=== PATIENT | female | born 1970 | race Caucasian/White ===

== ENCOUNTER 2018-07-20 11:05 | Day surgery (SDC) | payer BC ==
[~2018-07-20] VITALS: Ht 177.8 cm; Wt 89.8 kg
[2018-07-20] MEDS ORDERED: MIDAZOLAM 1 MG/ML, 2ML ONE (11:33)
[2018-07-20] MEDS ORDERED: FENTANYL PF 100 MCG/2ML ONE ×2 (11:33→13:43)
[2018-07-20] MEDS ORDERED: LACTATED RINGERS 1,000 ML IV SCH (11:34)
[2018-07-20] MEDS ORDERED: IBUP-1222 PO (11:42)
[2018-07-20] MEDS ORDERED: CYCL-259 PO (11:42)
[2018-07-20] MEDS ORDERED: OXYC-302 PO (11:42)
[2018-07-20] MEDS ORDERED: ACYC-114 PO (11:42)
[2018-07-20] MEDS ORDERED: SIME125C67 PO (11:42)
[2018-07-20 11:57] VITALS: BP 121/83
[2018-07-20 12:19] LABS: HCG UR SG 1.014 (1.003-1.030)
[2018-07-20] MEDS ORDERED: KETOROLAC 30 MG/1 ML ONE (12:55)
[2018-07-20] MEDS ORDERED: LIDOCAINE-MPF 2% ,5ML ONE (12:55)
[2018-07-20] MEDS ORDERED: DEXAMETHASONE 4 MG/ML, 1ML ONE (13:17)
[2018-07-20] MEDS ORDERED: PROPOFOL 10 MG/ML, 20ML ONE (13:17)
[2018-07-20] MEDS ORDERED: CEFAZOLIN 1,000 MG ONE (13:17)
[2018-07-20] MEDS ORDERED: ONDANSETRON 2MG/ML, 2ML ONE (13:17)
[2018-07-20] MEDS ORDERED: ONDANSETRON ODT 8 MG PO PRN (13:30)
[2018-07-20] MEDS ORDERED: DIAZEPAM 5 MG/ML, 2ML IVPush PRN (13:30)
[2018-07-20] MEDS ORDERED: OXYcodone 5 MG/5 ML ORAL.SOL UDC PO PRN (13:30)
[2018-07-20] MEDS ORDERED: LORazepam 2 MG/ML, 1ML IVPush PRN (13:30)
[2018-07-20] MEDS ORDERED: MEPERIDINE/PF 25MG/0.5ML IVPush PRN (13:30)
[2018-07-20] MEDS ORDERED: HYDROmorphone 2 MG/ML, 1ML IVPush PRN (13:30)
[2018-07-20] MEDS ORDERED: ONDANSETRON 2MG/ML, 2ML IV PRN (13:30)
[2018-07-20] MEDS ORDERED: PROMETHAZINE 25 MG/ML, 1ML IV PRN (13:30)
[2018-07-20] MEDS ORDERED: ACETAMINOPHEN 325 MG TABLET PO PRN (13:30)
[2018-07-20] MEDS ORDERED: ACETAMINOPHEN 650 MG/20.3 ML UDC ONE (13:42)
[2018-07-20] MEDS ORDERED: OXYcodone 5 MG/5 ML ORAL.SOL UDC ONE (13:42)
[2018-07-20] MEDS: FENTANYL PF 100 MCG/2ML IV PRN ×2 (13:50→13:55)
[2018-07-20] MEDS ORDERED: LORazepam 2 MG/ML, 1ML ONE (13:58)
== END 2018-07-20 16:45 | disposition home or self-care (01) ==
LOC: OUT 11:05
PROVIDERS: ATTEND Obstetrics & Gynecology
DX: N93.9 Abnormal uterine and vaginal bleeding, unspecified (principal); N84.1 Polyp of cervix uteri; J45.909 Unspecified asthma, uncomplicated; F32.9 Major depressive disorder, single episode, unspecified; Z90.49 Acquired absence of other specified parts of digestive tract; Z98.51 Tubal ligation status; Z98.890 Other specified postprocedural states; Z88.8 Allergy status to other drugs, medicaments and biological substances; Z91.040 Latex allergy status
CPT/HCPCS: 58563; 81025; 88305; J0690; J1100; J1885; J2060; J2250; J2405; J2704; J3010; J3490; J7120

== ENCOUNTER → 2018-10-13 | Outpatient (CLI) | payer BC ==
[~2018-10-13] MED LIST: ACYC-114 PO; CYCL-259 PO; IBUP-1222 PO; OXYC-302 PO; SIME125C67 PO
== END | disposition home or self-care (01) ==
LOC: CFH 08:10
PROVIDERS: ATTEND Physician Assistant
DX: S43.432A Superior glenoid labrum lesion of left shoulder, initial encounter (principal); M76.02 Gluteal tendinitis, left hip; M51.37 Other intervertebral disc degeneration, lumbosacral region; X58.XXXA Exposure to other specified factors, initial encounter; Y93.89 Activity, other specified; Y92.89 Other specified places as the place of occurrence of the external cause; Y99.8 Other external cause status